=== PATIENT | male | born 1950 | race Caucasian/White ===

== ENCOUNTER 2021-03-28 10:30 | Day surgery (SDC) | payer OTHER ==
[2021-03-28 09:54] LABS: Absolute Lymphocytes (CBC) 1.5 K/uL (0.7-4.9); Hematocrit 44.4 % (39.6-49.0); Lymphocytes % 27.8 % (15.3-44.8); MPV 8.5 fL (7.6-11.3); RBC Red Blood Cell Count 5.01 M/uL (4.33-5.43)
[2021-03-28 09:57] LABS: Protime INR 0.89
[2021-03-28 10:04] LABS: Potassium 4.3 mmol/L (3.5-5.1)
[2021-03-28] MEDS ORDERED: LIDOCAINE 1% 20 ML MDV ONE (10:35)
[2021-03-28] MEDS ORDERED: HEPA 1000U/500MLS 1,000 UNIT/500 ML BAG IV ONE (10:35)
[2021-03-28] MEDS ORDERED: NA CHLORIDE 0.9% 500 ML ONE (10:45)
--- NOTE | 2021-03-28 10:55 | RAD REPORT ---
EXAM DESCRIPTION: RAD - Chest Pa And Lat (2 Views) - 03/28/2021 9:46 am CLINICAL HISTORY: pre op, pending cardiac catheterization COMPARISON: Portable October 2007 TECHNIQUE: Frontal and lateral views of the chest were obtained. FINDINGS: The lungs are clear. Interstitial pattern is not clearly different from comparison. No pr ogressive interstitial process suspected. Heart size is normal and central vasculature is within norm al limits. No pleural effusion or pneumothorax seen. No acute bony finding noted. No aortic abnorm ality. IMPRESSION: No acute cardiopulmonary process.
[2021-03-28] MEDS ORDERED: FENTANYL CITR 100 MCG/2 ML ONE (11:01)
[2021-03-28] MEDS ORDERED: MIDAZOLAM HCL 2 MG/2 ML INJ ONE (11:01)
[2021-03-28] MEDS ORDERED: ATROPINE SULF 1 MG/10 ML SYR IV ONE (11:02)
[2021-03-28] MEDS ORDERED: NITROGLYCERIN 100 MCG/ML SYR (for cath lab use only) IV ONE (11:02)
[2021-03-28] MEDS ORDERED: NITROGLYCERIN/D5W 25 MG/250 ML BTL IV ONE (11:03)
[2021-03-28] MEDS ORDERED: NA CHLORIDE 0.9% 0 ML ONE (11:04)
[2021-03-28 13:05] VITALS: O2SAT 99
--- NOTE | 2021-03-28 13:18 | OP ---
Surgeon: Lm Muniz MD Petrophysical Engineer: Pauly Vallejo. Admitted to my service as an outpatient on 03/28/2021 for left heart catheterization, selective coron ferdinand arteriogram. Indication: Unstable angina, history of coronary artery disease, status post RCA thrombectomy years ago. Procedure In Detail: The patient was brought to the cardiac cath tech as an outpatient, prepped and draped in the routine sterile fashion. Given Versed and fentanyl for sedation. 10 cc of Xylocaine were used and a Seldinger technique was used to cannulate the right common femoral artery successfully with a 6 -[place] short sheath. Angiography there was normal. Angio-Seal was used to close the case. Libby catheter left and right were used to cannulate the left main and right main respectively. He had a normal LAD, normal circumflex, normal RCA. He was right dominant. There was some moderate plaque in the diagonal. There were no complications. Blood Loss: 5 mL. Anesthesia: Total conscious sedation was 30 minutes. Postoperative Diagnosis: Mild coronary artery disease. Plan: To continue medical therapy with aspirin and statin. The patient will go home today after 2 h ours of bedrest. I will see him in the office in a year. CHUCHO/SITA Voice ID: [id number] Report ID: [id number]
[2021-03-28 14:04] VITALS: BP 143/90
== END 2021-03-28 14:05 | disposition home or self-care (01) ==
LOC: CCL 10:30
DX: I25.110 Atherosclerotic heart disease of native coronary artery with unstable angina pectoris (principal); E78.2 Mixed hyperlipidemia; Z98.61 Coronary angioplasty status; Z79.01 Long term (current) use of anticoagulants; Z82.49 Family history of ischemic heart disease and other diseases of the circulatory system
CPT/HCPCS: 85025; 80048; 36415; 85610; 85730; 71046; 93454; C1893; C1760; J2250; J3010; J7040; J1644; J0583